=== PATIENT | female | born 1980 | race Asian ===

== ENCOUNTER 2018-07-07 01:28 | Emergency (ER) | payer OTHER ==
[~2018-07-07] VITALS: Ht 157.5 cm; Wt 50.0 kg
[2018-07-07] MEDS ORDERED: LORazepam 2 MG/ML VIAL IM ONE (02:30)
[2018-07-07 04:00] VITALS: BP 133/87
== END 2018-07-07 04:27 | disposition home or self-care (01) ==
LOC: EMS 01:29
DX: F41.9 Anxiety disorder, unspecified (principal); R07.89 Other chest pain
CPT/HCPCS: 81025; 93005; 96372; 99283; J2060